=== PATIENT | male | born 1970 | race Caucasian/White ===

== ENCOUNTER 2018-12-11 18:23 | Emergency (ER) | payer OTHER ==
[2018-12-11] MEDS ORDERED: KETOROLAC TROMETHAMINE 60 MG/2 ML VIAL IM ONE (18:28)
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
[2018-12-11 18:35] VITALS: BP 149/95; PULSE 77; TEMP 98; BMI 26.5
[2018-12-11] MEDS ORDERED: IBUPROFEN 600 MG TABLET (FP) PO ONE ×2 (19:25→19:29)
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
== END 2018-12-11 19:37 | disposition home or self-care (01) ==
LOC: JERFT 18:23
DX: S29.012A Strain of muscle and tendon of back wall of thorax, initial encounter (principal); V79.49XA Driver of bus injured in collision with other motor vehicles in traffic accident, initial encounter; Y92.414 Local residential or business street as the place of occurrence of the external cause; Y93.89 Activity, other specified; Y99.0 Civilian activity done for income or pay
CPT/HCPCS: 99281-25